=== PATIENT | male | born 1990 ===

== ENCOUNTER 2017-03-02 17:42 | Emergency (ER) | payer BC ==
[2017-03-02 18:43] VITALS: BP 137/88
--- NOTE | 2017-03-02 19:49 | UC ---
Respiratory Complaint HPI - HPI Summary HPI Summary: Congestion x 6 days now with trouble breathing. Diarrhea without vomiting. - History of Current Complaint Chief Complaint: UCRespiratory Stated Complaint: SINUS/EAR Time Seen by Provider: 03/02/17 19:39 Hx Obtained From: Patient Onset/Duration: Sudden Onset, Lasting Days - 6, Worse Since Timing: Constant Severity Initially: Mild Severity Currently: Moderate Aggravating Factors: Deep Breaths Associated Signs And Symptoms: Positive: Dyspnea, Fever, Nasal Congestion, Sinus Discomfort - frontal and maxillary Related History: Seasonal Allergies - Allergies/Home Medications Allergies/Adverse Reactions: Allergies Allergy/AdvReac Type Severity Reaction Status Date / Time Lidocaine Allergy Intermediate Hives Verified 03/02/17 18:43 Seafood Allergy Intermediate Hives Uncoded 03/02/17 18:43 Home Medications: Home Medications traMADol TAB* [Ultram*] 50 mg PO Q6HR PRN 03/02/17 [History Confirmed 03/02/17] PMH/Surg Hx/FS Hx/Imm Hx GI/ History: Gastroesophageal Reflux - Surgical History Surgical History: Yes Surgery Procedure, Year, and Place: Tonsillectomy, 1997, [facility]. Penile reconstruction at , LEFT KNEE ARTHROSCOPY, ENDOSCOPY - Family History Known Family History: Positive: Cardiac Disease, Hypertension, Diabetes - Social History Occupation: Employed Full-time Lives: With Family Alcohol Use: Rare Substance Use Type: None Smoking Status (MU): Never Smoked Tobacco Have You Smoked in the Last Year: No - Immunization History Most Recent Influenza Vaccination: no Review of Systems Constitutional: Fever ENT: Sinus Congestion, Sinus Pain/Tenderness Respiratory: Shortness Of Breath Gastrointestinal: Diarrhea Is Patient Immunocompromised?: No All Other Systems Reviewed And Are Negative: Yes Physical Exam Triage Information Reviewed: Yes Appearance: No Pain Distress, Well-Nourished, Ill-Appearing - mild Vital Signs: Initial Vital Signs Temp 100.7 F 03/02/17 18:39 Pulse 102 03/02/17 18:39 Resp 16 03/02/17 18:39 BP 137/88 03/02/17 18:39 Pulse Ox 99 03/02/17 18:39 Vital Signs Reviewed: Yes Eyes: Positive: Conjunctiva Clear ENT: Positive: Nasal congestion - With allergic changes., TMs normal Neck exam: Normal Respiratory: Positive: Lungs clear, Wheezing - expiratory with coughing Cardiovascular Exam: Normal Abdominal Exam: Normal Musculoskeletal Exam: Normal Neurological Exam: Normal Psychological Exam: Normal Skin Exam: Normal UC Diagnostic Evaluation - Laboratory O2 Sat by Pulse Oximetry: 99 Respiratory Course/Dx - Differential Dx/Diagnosis Differential Diagnosis/HQI/PQRI: Asthma, Lower Resp Infection, Sinusitis Provider Diagnoses: Allergic rhinitis. Acute sinusitis. Acute bronchospasm Discharge - Discharge Plan Condition: Stable Disposition: HOME Prescriptions: Amoxicillin PO (*) [Amoxicillin 875 MG (*)] 875 mg PO BID #20 tab predniSONE TAB* [Deltasone TAB*] 20 mg PO DAILY #18 tab Patient Education Materials: Allergic Rhinitis (ED), Sinusitis (ED), Amoxicillin (By mouth), Prednisone (By mouth) Additional Instructions: NASAL SPRAYS AND DROPS: Afrin in the PUMP/ MIST bottle. Tilt your head down and look at the floor while doing the spray. Decongestant nasal sprays and drops often give dramatic relief from congestion. They are often recommended for patients with sinus infection to assist with sinus drainage. Persons with high blood pressure should consult the doctor before using these nasal sprays. Afrin and Tab-Synephrine are common dume-waj-qtirllh preparations. They should not be used for more than five days, as "rebound" congestion can occur - - the congestion flares as the drug wears off. A way of dealing with this rebound congestion problem is to medicate only one nostril each time, allowing the other nostril to recover from the medicine' s effects. When you no longer need the drug during the day, spray only one nostril each night. This helps you sleep well without severe rebound congestion. Call the doctor if you develop severe headache, palpitations, or chest pain. NEILMED SINUS RINSE: CHECK OUT AT [facility] Saline nasal wash helps with mucous, allergies and congestion. It can be used up to twice a day or only as needed. Use lukewarm tap water. It does not have to be sterilized or distilled water. Do 1/3 on each side and snort out of both nostrils. Repeat the process with 1/6 of the bottle on each side with snorting in between to finish the solution in the bottle
[2017-03-02] MEDS ORDERED: Amoxicillin PO (*) 500 MG CAP PO ONE (19:53)
== END 2017-03-02 20:02 | disposition home or self-care (01) ==
LOC: UCCORT 17:42
DX: J30.9 Allergic rhinitis, unspecified (principal); J01.90 Acute sinusitis, unspecified; J98.01 Acute bronchospasm; K21.9 Gastro-esophageal reflux disease without esophagitis; Z88.4 Allergy status to anesthetic agent; Z91.013 Allergy to seafood
CPT/HCPCS: 99212; A9270-GY; G0463